=== PATIENT | female | born 1970 ===

== ENCOUNTER 2018-09-21 09:22 | Outpatient (REF) | payer OTHER, SELFPAY ==
[2018-09-21 19:16] LABS: Anion Gap 9.9 mmol/L (3-11); BUN 13 mg/dL (7-18); CO2 25.1 mmol/L (21.0-32.0); CREATININE 0.65 mg/dL (0.55-1.02); Calcium 8.4 mg/dL (8.5-10.1); Calculated LDL 91 mg/dL; Chloride 106 mmol/L (98-107); Cholesterol 149 mg/dL (50-200); Glucose 85 mg/dL (70-100); HDL Cholesterol 53 mg/dL (40-60); Potassium 3.9 mmol/L (3.5-5.1); Sodium 141 mmol/L (136-145); Triglyceride 27 mg/dL (30-150)
[2018-09-21 19:41] LABS: Bacteria Moderate HPF (Negative); C & S Indicated? No/Sq. Contamination; Crystals Negative HPF (Negative); Epithelial Cells Many HPF (Negative); Mucus Negative (Negative); Other Cells Negative (Negative); RBC Negative (0-2); WBC 20-50 HPF (0-5)
== END 2018-09-21 09:42 ==
LOC: NCHCN 09:22
PROVIDERS: PCP Specialist/Technologist Athletic Trainer; Visit Provider Specialist/Technologist Athletic Trainer
DX: Z00.00 Encounter for general adult medical examination without abnormal findings (principal); N39.0 Urinary tract infection, site not specified; Z13.228 Encounter for screening for other metabolic disorders; Z13.220 Encounter for screening for lipoid disorders
CPT/HCPCS: 80048; 80061; 83721; 81015

== ENCOUNTER 2018-12-10 12:17 | Outpatient (REF) | payer OTHER, SELFPAY ==
--- NOTE | 2018-12-10 14:20 | PAPFT_PTH ---
PATIENT: Leia Mcdowell LOC: [facility] U#:[id number] AGE/SX: 48/F ROOM: RE12/10/[address]: Kallie Richards : 1970 BED: DIS: 12/10/2018 SPEC #: [id number] RECD: 12/11/18 12:57 STATUS: JG REMarcin #: [id number] ELIGIO: 12/10/18 14:[address]: Kallie Richards DEPT: [facility] Cytology RECD BY: Kristan Peterson ENTERED: 12/11/18 12:58 SP TYPE: PAPFT OTHR DR: Miles Martinez Tissues: 1 - CX/ENDOCX FOR PAP SMEARS Procedures: PAP THIN PREP/UVM Screening HPV DNA PROBE Comments: [id number]
== END 2018-12-10 12:37 ==
LOC: LBN 12:17
PROVIDERS: PCP Specialist/Technologist Athletic Trainer; Visit Provider Obstetrics & Gynecology Gynecology
DX: Z12.4 Encounter for screening for malignant neoplasm of cervix (principal); Z11.51 Encounter for screening for human papillomavirus (HPV)
CPT/HCPCS: 88142; 87624

== ENCOUNTER 2018-12-10 14:44 | Outpatient (CLI) | payer OTHER, SELFPAY ==
[2018-12-10 17:29] LABS: TSH (W/Ref FT4) 0.69 uIU/mL (0.36-3.74)
== END 2018-12-10 15:04 ==
PROVIDERS: PCP Specialist/Technologist Athletic Trainer; Visit Provider Obstetrics & Gynecology Gynecology
DX: N92.6 Irregular menstruation, unspecified (principal)
CPT/HCPCS: 36415; 84443

== ENCOUNTER 2019-07-11 18:43 | Outpatient (REF) | payer OTHER, SELFPAY | END 2019-07-11 19:03 | LOC: NCHCN 18:43 | PROVIDERS: PCP Specialist/Technologist Athletic Trainer; Visit Provider Family Medicine | DX: R35.0 Frequency of micturition (principal) | CPT/HCPCS: 87086 ==

== ENCOUNTER 2019-09-23 11:27 | Outpatient (REF) | payer OTHER, SELFPAY ==
[2019-09-23 20:03] LABS: Anion Gap 10.5 mmol/L (3-11); BUN 10 mg/dL (7-18); CO2 25.5 mmol/L (21.0-32.0); CREATININE 0.61 mg/dL (0.55-1.02); Calcium 8.8 mg/dL (8.5-10.1); Chloride 105 mmol/L (98-107); Glucose 88 mg/dL (74-106); Sodium 141 mmol/L (136-145)
[2019-09-23 20:14] LABS: Hemoglobin A1C 5.8 % (3.8-5.6)
[2019-09-23 20:32] LABS: Calculated LDL 146 mg/dL (<100); Cholesterol 218 mg/dL (<200); HDL Cholesterol 54 mg/dL (40-60); Triglyceride 93 mg/dL (<150)
== END 2019-09-23 11:47 ==
LOC: NCHCN 11:27
PROVIDERS: PCP Specialist/Technologist Athletic Trainer; Visit Provider Nurse Practitioner Family
DX: I10 Essential (primary) hypertension (principal); Z00.00 Encounter for general adult medical examination without abnormal findings; E78.5 Hyperlipidemia, unspecified
CPT/HCPCS: 80048; 80061; 83036

== ENCOUNTER 2020-03-24 14:55 | Outpatient (REF) | payer OTHER, SELFPAY ==
[2020-03-26 13:06] LABS: COVID-19 RT-PCR UVMMC Result Negative (Negative)
== END 2020-03-24 14:56 | disposition home or self-care (01) ==
LOC: NCHCN 14:55
PROVIDERS: PCP Specialist/Technologist Athletic Trainer; Visit Provider Nurse Practitioner Family
DX: J06.9 Acute upper respiratory infection, unspecified (principal)
CPT/HCPCS: U0003

== ENCOUNTER 2020-10-26 16:42 | Outpatient (REF) | payer OTHER, SELFPAY ==
[2020-10-26 19:54] LABS: Anion Gap 9.3 mmol/L (3-11); BUN 16 mg/dL (7-18); CO2 27.7 mmol/L (21.0-32.0); CREATININE 0.7 mg/dL (0.55-1.02); Calcium 9.1 mg/dL (8.5-10.1); Calculated LDL 172 mg/dL (<100); Chloride 106 mmol/L (98-107); Cholesterol 246 mg/dL (<200); Glucose 91 mg/dL (74-106); HDL Cholesterol 55 mg/dL (40-60); Magnesium 1.9 mg/dL (1.8-2.4); Potassium 4.2 mmol/L (3.5-5.1); Sodium 143 mmol/L (136-145); Triglyceride 96 mg/dL (<150)
[2020-10-26 20:03] LABS: Vitamin D 25 Total 32.4 ng/mL (30-100)
== END 2020-10-26 16:43 | disposition home or self-care (01) ==
LOC: NCHCN 16:42
PROVIDERS: Visit Provider Nurse Practitioner Family
DX: E78.5 Hyperlipidemia, unspecified (principal); R73.03 Prediabetes; Z00.00 Encounter for general adult medical examination without abnormal findings
CPT/HCPCS: 80048; 80061; 82306; 83036; 83735

== ENCOUNTER 2021-04-18 11:52 | Emergency (ER) | payer OTHER, SELFPAY ==
[2021-04-18] VITALS (15 sets, daily range): BP systolic 127–161; BP diastolic 67–96; PULSE 60–95; RESP 11–24; TEMP 37.5; O2SAT 98–100
--- NOTE | 2021-04-18 11:45 | RT.EKG_ITS ---
APPROVED REPORT Exam: Resting ECG Reason for Exam: chest pain Patient Location: E HR:84 bpm ECG Measurements Heart Rate 84 AXIS AK 152 P 53 QRSd 108 QRS 35 QT 382 T 12 QTc 453 Conclusion Sinus rhythm...normal P axis, V-rate 60- 99
--- NOTE | 2021-04-18 12:16 | ED.GENADUL_ITS ---
Discharge Plan Disposition Patient Disposition: HOME Condition: Improving Discharge Details Clinical Impression: Chest wall muscle strain Primary Care Provider: Unknown,Unknown ED Provider: Fede Dunham Home Meds and New Rx's Prescriptions: Continued losartan 50 mg Tablet 50 mg PO DAILY 0RF topiramate [Topamax] 25 mg Tablet 25 mg PO DAILY 0RF Discharge Instructions Instructions: Muscle Strain (ED) Additional Instructions: Your work-up in the emergency department today included chest x-ray, EKG, laboratory analysis with cardiac troponin and a D-dimer. May use ibuprofen and/or Tylenol as needed for discomfort. Apply heat to area to reduce discomfort. Return to the ER if you develop a rash, worsening pain, or any other acute concerns. Medical Decision Making This is a 50-year-old female who was moving heavy boxes at work on , awoke with reproducible central sternal chest pain on Monday that has been persistent throughout. She did note some increased discomfort with movement and with taking a deep breath. She has not had any difficulty breathing or sh ortness of breath. She has not had a rash. She will note a recent URI. Patient arrives to the ER with unremarkable vital signs. She is slightly hypertensive. She has reproducible sternal discomfort on my exam. Differential diagnosis includes muscular strain, must exclude ACS or pulmonary embolism. Patient patient was placed on a surgical dressing maker, screening labs, EKG, chest x-ray obtained. Chest x-ray unremarkable for acute process. EKG without evidence of ischemic changes. Patient's laboratories are reassuring. White blood cell count and CBC are within normal limits. D-dimer is negative. Chemistries unremarkable. Troponin I is negative as well. Patient is improved, she does have a chest pain and an inciting strenuous event for muscle strain. Discussed with her home management. She is stable and appropriate for discharge at [facility] General Mode of arrival: ambulatory . Date/Time Provider Initiated Documentation: 04/18/21 11:52 . Limitations to Documentation: no limitations . Information obtained by: patient . History of Present Illness 50 year old F presents to the emergency department with the chief complaint of Central chest pain since Monday, described as moderate, Quality is described as dull and constant, and is localized to the chest. Patient reports no radiation. Patient started experiencing this day(s) and it has been constant. improves with Rest improves symptom(s), Movement worsens symptoms . Patient notes chest pain; denies cough, fever/chills and shortness of breath. Patient did receive the following treatments prior to arrival, none Related Data Home Medications Medication Instructions Recorded Confirmed losartan 50 mg tablet 50 mg PO DAILY 04/18/21 04/18/21 topiramate 25 mg tablet (Topamax) 25 mg PO DAILY 04/18/21 04/18/21 Allergies Allergy/AdvReac Type Severity Reaction Status Date / Time Latex, Natural Rubber Allergy Unverified 04/18/21 12:02 General Stated Complaint: Chest Pain AMBER: 2 Review of Systems Narrative: No rash. Recently had upper respiratory illness. She has otherwise recently been well. 8 systems reviewed and otherwise negative PFSH All Active Problems (Updated 04/18/21 @ 13:52 by Fede Dunham MD) Chest wall muscle strain (Acute) Social History Smoking/Tobacco Use Status: Former Tobacco Use Smoking risk assessment performed?: Yes Alcohol Intake: never Drug use: Never Substance use type: does not use Do you feel safe at home: Yes Do you feel safe in your relationship?: Yes Exam Narrative Exam Narrative: GEN: awake, alert, oriented 3. Pleasant, well groomed, interactive. HEAD: Normocephalic, atraumatic ENT: Mucous membranes moist,External ear exam unremarkable EYES: PERRL, EOMI NECK: Full ROM, no NELSON, no menigismus CHEST/RESP: Tender overlying the lower sternum. No rash. No crepitus, clear to auscultation bilateral, no wheeze/rhonchi/rales CARDIOVASCULAR: RRR, no murmur, rub shauna. 2+ Rad pulse bilateral ABDOMEN: Soft, nontender, no mass. +Bowel sounds EXT: Full ROM, no edema, no rash Neuro: Grossly normal neurologic exam, conversant, interactive. Psych: Speech fluent, thoughts congruent, affect normal Course Vital Signs Vital signs: Vital Signs Temperature 37.5 C 04/18/21 11:58 Pulse 92 H 04/18/21 11:58 Respiratory Rate 16 04/18/21 11:58 Blood Pressure 161/96 H 04/18/21 11:58 Pulse Oximetry 99 04/18/21 11:58 Temperature 37.5 C 04/18/21 11:58 Temperature Source Temporal Artery Scan 04/18/21 11:58 Pulse 92 H 04/18/21 11:58 Respiratory Rate 16 04/18/21 11:58 Respiratory Effort Non-Labored 04/18/21 12:00 Blood Pressure 161/96 H 04/18/21 11:58 Blood Pressure Position Sitting 04/18/21 11:58 Pulse Oximetry 99 04/18/21 11:58 Oxygen Delivery Method Room Air 04/18/21 11:58 Oxygen Flow Rate 0 04/18/21 11:58 Pain Level 6 04/18/21 11:58
[2021-04-18 12:42] LABS: Abs Immature Grans 0.01 10^3/uL (0.0-0.06); Absolute Basophil Count 0.03 10^3/uL (0.0-0.2); Absolute Eosinophil Count 0.12 10^3/uL (0.0-0.7); Absolute Monocyte Count 0.62 10^3/uL (0.1-0.8); Absolute Neutrophil Count 5.41 10^3/uL (1.2-6.7); Basophils % 0.4; Eosinophils % 1.6; HCT 39.7 % (36.0-46.0); HGB 12.7 g/dL (11.2-15.7); Immature Grans % 0.1; Lymphocytes % 18.4; MCH 28.9 pg (27.0-33.0); MCV 90.4 fL (80-95); MPV 9.7 fL (8.0-11.0); Monocytes % 8.2; Neutrophils % 71.3; Nucleated RBC 0 %; Platelet Count 309 10^3/uL (130-400); RBC 4.39 10^6/uL (3.93-5.22); RDW 12.5 % (11.7-14.6); RDW-SD 41.1 fL; WBC 7.59 10^3/uL (4.4-10.8)
--- NOTE | 2021-04-18 12:55 | DI.RAD_ITS ---
Exam(s) XR CHEST 2V PA LATERAL EXAM: XR CHEST 2V PA LATERAL CLINICAL HISTORY: Central chest pressure. TECHNIQUE: 2D digital imaging was performed. COMPARISON: No exams were available for comparison FINDINGS: 2 views: Heart size is normal. The mediastinum is not widened. Right lung is clear. There is subsegmental platelike atelectasis in the left lung base adjacent to t he heart border. No confluent infiltrates. No pleural effusions. No pneumothorax. IMPRESSION: Subsegmental platelike atelectasis in the left lung base. DATA REPOSITORY: RADIATION DOSE DELIVERED:
--- NOTE | 2021-04-18 12:58 | DI.VRAD_ITS ---
PROCEDURE INFORMATION: Exam: XR Chest Exam date and time: 04/18/2021 12:16 PM Age: 50 years old Clinical indication: Other: Chest pressure TECHNIQUE: Imaging protocol: XR of the chest. Views: 2 views. COMPARISON: No relevant prior studies available. FINDINGS: Lungs: Unremarkable. No consolidation. Pleural spaces: Unremarkable. No pleural effusion. No pneumothorax. Heart/Mediastinum: Unremarkable. No cardiomegaly. Bones/joints: Unremarkable. IMPRESSION: No acute findings. Dictated and Authenticated by: Josh De León MD. Ordering:JAKOB Mistry MD
[2021-04-18 13:00] LABS: ALT 16 U/L (14-59); AST 14 U/L (15-37); Albumin 3.5 g/dL (3.4-5.0); Alkaline Phosphatase 109 U/L (46-116); Anion Gap 11.8 mmol/L (3-11); BUN 10 mg/dL (7-18); Bilirubin, Total 0.4 mg/dL (0.2-1.0); CO2 21.2 mmol/L (21.0-32.0); CREATININE 0.7 mg/dL (0.55-1.02); Calcium 8.5 mg/dL (8.5-10.1); Chloride 109 mmol/L (98-107); Glucose 92 mg/dL (74-106); Magnesium 1.9 mg/dL (1.8-2.4); Potassium 3.5 mmol/L (3.5-5.1); Sodium 142 mmol/L (136-145); Total Protein 7.4 g/dL (6.4-8.2); Troponin I < 50 ng/L (<or=60)
[2021-04-18 13:38] LABS: D-Dimer 420 ng/mlFEU (<500)
== END 2021-04-18 14:20 | disposition home or self-care (01) ==
PROVIDERS: Emergency Provider Emergency Medicine
DX: S29.011A Strain of muscle and tendon of front wall of thorax, initial encounter (principal); X50.0XXA Overexertion from strenuous movement or load, initial encounter; Y99.0 Civilian activity done for income or pay; R07.9 Chest pain, unspecified; R07.89 Other chest pain
CPT/HCPCS: 36415; 80053; 93005; 99284; 71046; 83735; 84484; 85025; 85379; 93010; 99283

== ENCOUNTER 2021-08-25 15:45 | Outpatient (REF) | payer OTHER, SELFPAY ==
--- NOTE | 2021-08-25 15:40 | PAPFT_PTH ---
PATIENT: Leia Mcdowell LOC: [facility] U#:[id number] AGE/SX: 51/F ROOM: RE08/25/[address]: Kallie Richards : 1970 BED: DIS: 08/25/2021 SPEC #: [id number] RECD: 08/25/21 16:59 STATUS: JEWELRadha REQ #: [id number] ELIGIO: 08/25/21 15:[address]: Kallie Richards DEPT: [facility] Cytology RECD BY: Kristan Peterson ENTERED: 08/25/21 17:00 SP TYPE: PAPFT OT DR: Unknown,Unknown Tissues: 1 - CX/ENDOCX FOR PAP SMEARS Procedures: PAP THIN PREP/UVM Screening HPV DNA PROBE Comments: [id number]
== END 2021-08-25 15:46 | disposition home or self-care (01) ==
LOC: LBN 15:45
PROVIDERS: Visit Provider Obstetrics & Gynecology Gynecology
DX: R10.32 Left lower quadrant pain (principal); Z12.4 Encounter for screening for malignant neoplasm of cervix; Z11.51 Encounter for screening for human papillomavirus (HPV)
CPT/HCPCS: 88142; 87086; 87624

== ENCOUNTER 2021-08-25 18:51 | Outpatient (REF) | payer OTHER, SELFPAY | END 2021-08-25 18:52 | disposition home or self-care (01) | LOC: LBN 18:51 | PROVIDERS: Visit Provider Obstetrics & Gynecology Gynecology ==

== ENCOUNTER → 2022-01-26 01:11 | Outpatient (CLI) | payer OTHER, SELFPAY ==
--- NOTE | 2022-01-26 14:00 | DI.MAMMO_ITS ---
Exam(s) MAMMO SCREENING EXAM: MAMMO SCREENING CLINICAL HISTORY: SCREENING, Z12.31. TECHNIQUE: Bilateral full field digital CC and MLO mammographic images were obtained with 3D tomosyn thesis and utilizing computer aided detection (CAD). COMPARISON: None. This is a baseline mammogram on this 51-year-old patient. FINDINGS: Fibroglandular tissue pattern is predominately fatty. There are no CAD designations. There are no spiculated masses nor malignant appearing microcalcification groups. There is no significant architectural distortion nor skin thickening-retraction. IMPRESSION: No radiographic evidence of malignancy. BI-RADS Category 1 - Negative Breast Density - Category A - Almost entirely fatty Breast density Category C or D implies that the patient has dense breast tissue. Dense breast tissue can make it harder to find cancer on a mammogram. Dense breast tissue is also associated with an incr eased risk of breast cancer. This information about the result of the mammogram report was provided to the patient to raise their awareness. Use this report when you speak with the patient about their risks for breast cancer, which includes their family history. At that time, you may recommend additional screening tests (Ultrasoun d or MRI) as these tests may add significant information. A negative radiographic report should not delay biopsy if a dominant or clinically suspicious mass is present. Up to ten percent of cancers are not identified on mammography. A negative report may reinforce clinical impression. Adenosis and dense breasts may obscure an underlying neoplasm. False positive reports average 6 to 10%. Patient will receive a letter notifying them of these results.
== END ==
PROVIDERS: Visit Provider Nurse Practitioner Family
DX: Z12.31 Encounter for screening mammogram for malignant neoplasm of breast (principal)
CPT/HCPCS: 77063; 77067

== ENCOUNTER 2022-08-18 15:12 | Outpatient (REF) | payer OTHER, SELFPAY ==
[2022-08-18 19:33] LABS: Abs Immature Grans 0.03 10^3/uL (0.0-0.06); Absolute Basophil Count 0.06 10^3/uL (0.0-0.2); Absolute Eosinophil Count 0.07 10^3/uL (0.0-0.7); Absolute Lymphocyte Count 1.69 10^3/uL (1.2-3.4); Absolute Monocyte Count 0.61 10^3/uL (0.1-0.8); Absolute Neutrophil Count 6.01 10^3/uL (1.2-6.7); Basophils % 0.7; Eosinophils % 0.8; HCT 44.8 % (36.0-46.0); HGB 14.6 g/dL (11.2-15.7); Immature Grans % 0.4; MCH 29.4 pg (27.0-33.0); MCHC 32.6 % (32.0-36.0); MCV 90 fL (80-95); MPV 10.2 fL (8.0-11.0); Monocytes % 7.2; Neutrophils % 70.9; Platelet Count 366 10^3/uL (130-400); RBC 4.96 10^6/uL (3.93-5.22); RDW 12.1 % (11.7-14.6); RDW-SD 39.9 fL; WBC 8.47 10^3/uL (4.4-10.8)
[2022-08-18 19:45] LABS: Hemoglobin A1C 5.8 % (<5.7)
[2022-08-18 19:47] LABS: ALT 23 U/L (14-59); AST 22 U/L (15-37); Alkaline Phosphatase 143 U/L (46-116); Anion Gap 11.4 mmol/L (3-11); BUN 14 mg/dL (7-18); Bilirubin, Total 0.3 mg/dL (0.2-1.0); CO2 26.6 mmol/L (21.0-32.0); CREATININE 0.8 mg/dL (0.55-1.02); Calcium 9.4 mg/dL (8.5-10.1); Calculated LDL 187 mg/dL (<100); Chloride 104 mmol/L (98-107); Cholesterol 262 mg/dL (<200); Estimated GFR 89.15 (mL/min/1.73m2); Glucose 95 mg/dL (74-106); HDL Cholesterol 66 mg/dL (40-60); Potassium 3.9 mmol/L (3.5-5.1); Sodium 142 mmol/L (136-145); TSH (W/Ref FT4) 0.55 uIU/mL (0.36-3.74); Total Protein 8.3 g/dL (6.4-8.2); Triglyceride 46 mg/dL (<150)
[2022-08-20 13:23] LABS: HIV-1/2 Ag & Ab Screen Negative (Negative)
[2022-08-22 10:23] LABS: Hepatitis C Ab w Rflx HCV PCR Negative (Negative)
== END 2022-08-18 15:13 | disposition home or self-care (01) ==
LOC: NCHCN 15:12
PROVIDERS: Visit Provider Nurse Practitioner Family
DX: Z00.00 Encounter for general adult medical examination without abnormal findings (principal)
CPT/HCPCS: 80053; 80061; 86803; 87389; 83036; 84443; 85025

== ENCOUNTER → 2022-10-24 03:05 | Outpatient (CLI) | payer OTHER, SELFPAY ==
--- NOTE | 2022-10-24 | DI.DEXA_ITS ---
Exam(s) XR DEXA BONE DENSITY W/WO TRENT EXAM: XR DEXA BONE DENSITY W/WO TRENT CLINICAL HISTORY: ELEVATED ALKALINE PHOSPHATASE R74.8 TECHNIQUE: COMPARISON: No exams were available for comparison FINDINGS: Lateral Spine Image: Unremarkable. No compression deformities identified. Left hip: Total T-Score: 0.1 Total Z-Score: 0.6 T- and Z-scores: Within normal limits. Lumbar Spine: Total T-Score: -0.4 Total Z-Score: 0.4 T- and Z-scores: Within normal limits. IMPRESSION: No evidence of osteoporosis.
== END ==
PROVIDERS: Visit Provider Nurse Practitioner Family
DX: Z13.820 Encounter for screening for osteoporosis (principal); R74.8 Abnormal levels of other serum enzymes
CPT/HCPCS: 77080

== ENCOUNTER 2022-12-01 15:59 | Outpatient (REF) | payer OTHER, SELFPAY ==
[2022-12-01 19:28] LABS: Abs Immature Grans 0.03 10^3/uL (0.0-0.06); Absolute Basophil Count 0.04 10^3/uL (0.0-0.2); Absolute Lymphocyte Count 1.44 10^3/uL (1.2-3.4); Absolute Monocyte Count 0.66 10^3/uL (0.1-0.8); Absolute Neutrophil Count 6.18 10^3/uL (1.2-6.7); Basophils % 0.5; Eosinophils % 1.2; HCT 41.3 % (36.0-46.0); HGB 13.1 g/dL (11.2-15.7); Immature Grans % 0.4; MCH 28.5 pg (27.0-33.0); MCHC 31.7 % (32.0-36.0); MCV 90 fL (80-95); MPV 10.5 fL (8.0-11.0); Monocytes % 7.8; Neutrophils % 73.1; Platelet Count 328 10^3/uL (130-400); RBC 4.59 10^6/uL (3.93-5.22); RDW 12.7 % (11.7-14.6); RDW-SD 42.3 fL; WBC 8.45 10^3/uL (4.4-10.8)
[2022-12-01 19:48] LABS: ALT 32 U/L (14-59); AST 24 U/L (15-37); Albumin 3.9 g/dL (3.4-5.0); Alkaline Phosphatase 129 U/L (46-116); Anion Gap 9.9 mmol/L (3-11); BUN 14 mg/dL (7-18); Bilirubin, Total 0.2 mg/dL (0.2-1.0); CO2 24.1 mmol/L (21.0-32.0); CREATININE 0.6 mg/dL (0.55-1.02); Calcium 9.7 mg/dL (8.5-10.1); Calculated LDL 115 mg/dL (<100); Chloride 106 mmol/L (98-107); Cholesterol 194 mg/dL (<200); Estimated GFR 108.61 (mL/min/1.73m2); Glucose 91 mg/dL (74-106); HDL Cholesterol 68 mg/dL (40-60); Sodium 140 mmol/L (136-145); Total Protein 7.8 g/dL (6.4-8.2); Triglyceride 57 mg/dL (<150)
== END 2022-12-01 16:00 | disposition home or self-care (01) ==
LOC: NCHCN 15:59
PROVIDERS: Visit Provider Nurse Practitioner Family
DX: E78.5 Hyperlipidemia, unspecified (principal); R10.9 Unspecified abdominal pain
CPT/HCPCS: 80053; 80061; 85025

== ENCOUNTER → 2023-02-09 02:16 | Outpatient (CLI) | payer OTHER, SELFPAY ==
--- NOTE | 2023-02-09 | DI.MAMMO_ITS ---
Exam(s) MAMMO SCREENING EXAM: MAMMO SCREENING CLINICAL HISTORY: SCREENING FOR BREAST CANCER Z12.31 TECHNIQUE: Bilateral full field digital CC and MLO mammographic images were obtained with 3D tomosyn thesis and utilizing computer aided detection (CAD). COMPARISON: Available for comparison. FINDINGS: Masses/Architectural Distortion: There is a collection of small well-circumscribed nodules in the upp er central left breast on the MLO view. This may represent vessels versus breast nodules. No areas of architectural distortion are seen. Microcalcifications: No suspicious pleomorphic-type are seen. Skin Thickening/Nipple Retraction: None. IMPRESSION: 1. Small collection of nodules in the upper central left breast on the MLO view. 2. A spot compression views requested for further evaluation. Limited left breast ultrasound may be indicated at that time. BI-RADS Category 0 - Assessment Incomplete: Need additional imaging evaluation Breast Density - Category B - Scattered areas of fibroglandular density Breast density category C or D implies that the patient has dense breast tissue. Dense breast tissue is very common and is not abnormal but dense breast tissue can make it harder to find cancer on a ma mmogram. Also, dense breast tissue may increase their breast cancer risk. This information about the result of the mammogram report was provided to the patient to raise their awareness. Use this report when you speak with the patient about their risks for breast cancer, which includes their family hist ory. At that time, you may recommend for more screening tests (Ultrasound or MRI) as they might be us eful based on their risk. A negative radiographic report should not delay biopsy if a dominant or clinically suspicious mass is present. Up to ten percent of cancers are not identified on mammography. A negative report may reinforce clinical impression. Adenosis and dense breasts may obscure an underlying neoplasm. False positive reports average 6 to 10%. Patient will receive a letter notifying them of these results.
== END ==
PROVIDERS: Visit Provider Nurse Practitioner Family
DX: Z12.31 Encounter for screening mammogram for malignant neoplasm of breast (principal); R92.8 Other abnormal and inconclusive findings on diagnostic imaging of breast
CPT/HCPCS: 77063; 77067

== ENCOUNTER → 2023-02-15 02:17 | Outpatient (CLI) | payer OTHER, SELFPAY ==
--- NOTE | 2023-02-15 13:11 | DI.MAMMO_ITS ---
Exam(s) MAMMO SCREEN CALL BACK UNI EXAM: MAMMO SCREEN CALL BACK UNI CLINICAL HISTORY: F/U MAMMO, NODULES UPPER CENTRAL BREAST,R92.8. TECHNIQUE: Craniocaudal and mediolateral oblique Full Field Digital Mammography views of the left br east with Computer Aided Diagnosis. COMPARISON: No exams were available for comparison FINDINGS: Mammography/Tomosynthesis: Masses/Architectural Distortion: The area of concern appears represent tortuous vessels. No suspicio us masses are seen. No areas of architectural distortion are seen. Microcalcifictions: No suspicious pleomorphic-type are seen. Skin Thickening/Nipple Retraction: None. IMPRESSION: 1. No evidence of malignancy is noted. 2. Unless there is more urgent need, follow-up screening mammography is recommended, as per [place] [employer] guidelines. 3. The findings were discussed with the patient on the date of the examination. BI-RADS Category 1 - Negative Breast Density - Category B - Scattered areas of fibroglandular density Breast density Category C or D implies that the patient has dense breast tissue. Dense breast tissue can make it harder to find cancer on a mammogram. Dense breast tissue is also associated with an incr eased risk of breast cancer. This information about the result of the mammogram report was provided to the patient to raise their awareness. Use this report when you speak with the patient about their risks for breast cancer, which includes their family history. At that time, you may recommend additional screening tests (Ultrasoun d or MRI) as these tests may add significant information. A negative radiographic report should not delay biopsy if a dominant or clinically suspicious mass is present. Up to ten percent of cancers are not identified on mammography. A negative report may reinforce clinical impression. Adenosis and dense breasts may obscure an underlying neoplasm. False positive reports average 6 to 10%. Patient will receive a letter notifying them of these results.
== END ==
PROVIDERS: Visit Provider Nurse Practitioner Family
DX: Z12.31 Encounter for screening mammogram for malignant neoplasm of breast (principal); R92.8 Other abnormal and inconclusive findings on diagnostic imaging of breast; N64.59 Other signs and symptoms in breast
CPT/HCPCS: 77063; 77067

== ENCOUNTER 2023-04-17 07:28 | Day surgery (SDC) | payer OTHER, SELFPAY ==
--- NOTE | 2023-04-16 06:44 | PDOC.DSDIS_ITS ---
Date of service: 04/17/23 Time of Service: 09:13 Discharge Plan Disposition Patient Disposition: Home Condition: Good Discharge Details Reason For Visit: screening colonoscopy Attending Provider: David Romeo Primary Care Provider: None,None Home Meds and New Rx's Prescriptions: Continued rosuvastatin 5 mg tablet 5 mg PO DAILY amlodipine 5 mg tablet 5 mg PO HS ibuprofen [Advil Liqui-Gel] 200 MG capsule 200 mg PO PRN aspirin 81 mg tablet,delayed release (DR/EC) 81 mg PO DAILY magnesium oxide 400 mg magnesium tablet 200 mg PO DAILY losartan 50 mg tablet 50 mg PO DAILY Discontinued bisacodyl [Dulcolax (bisacodyl)] 5 mg tablet,delayed release (DR/EC) 5 mg PO ONCE Qty: 4 0RF Rx Instructions: Colonoscopy Bowel Prep- Per Instructions polyethylene glycol 3350 17 gram/dose powder 238 g PO ONCE Qty: 238 0RF Rx Instructions: Colonoscopy Bowel Prep- Per Instructions Discharge Instructions Instructions: Diverticulosis (GEN), Colorectal Polyps (GEN), Diverticulosis D iet (GEN) Additional Instructions: Leia, we were able to complete your colonoscopy today without any difficulty. I did find 1 small polyp that I removed completely. This will be tested, and once the nature of the polyp is returned, then I will be in touch with my recommendations. Incidentally, you also have a little bit of diverticulosis. These are small weak spots in the muscular wall of the colon. General approaches to taking care of involved staying well-hydrated, avoiding constipation, and having plenty of dietary fiber. I have attached a little bit of information here regarding diverticular disease as well as colon and rectal polyps. If you have any questions in the meantime, please do not hesitate to call at any point. 1. If tolerated, consume a soft, low fiber diet for 1-2 days. 2[address] Do not drive, drink alcohol, operate machinery, make critical decisions, or do activities that require coordination or balance for 24 hours. 3. Because air was put into your colon during the procedure, expelling air from your rectum (passing gas or farting) is normal. 4. You may not have a bowel movement for 1-3 days because of the colonoscopy prep. This is normal. 5. Go directly to the emergency room if you notice any of the following: Develop chills (warm to touch), or if you have a thermometer and your temperature is above 101 Difficulty breathing or difficultly swallowing Persistent vomiting Severe abdominal pain, other than gas cramps Severe chest pain Black, tarry stools Any bleeding ? exceeding one tablespoon 6. Call your physician if the site where your intravenous was started becomes red, swollen, painful, and warm to touch. 7. Your physician has reviewed your pre-procedure medications. Please continue to take those medications as previously ordered. You will be given specific information/education regarding any changes to your medications before leaving. Activity:: Activity as Tolerated Diet:: As Tolerated Discharge Orders Discharge Orders: Discharge Order (Routine); Ordered 04/16/23 Ordered By: David Romeo DS: Diagnosis Discharge Diagnosis (1) Encounter for screening colonoscopy: Status: Acute Asessment and Plan: Follow-up on polypectomy results
--- NOTE | 2023-04-16 06:46 | W.COLOREPORT ---
Date of service: 04/17/23 Time of Service: 09:14 Colonoscopy Report Date of procedure: 04/17/23 Pre-op diagnosis general: screening colonoscopy Post-op diagnosis procedure note: other (Diverticulosis, colon polyp) Procedure: colonoscopy with polypectomy Surgeon: David Romeo Anesthesia Type: General:No Airway Estimated blood loss (mL): 5 Pathology: other (0.25 cm pedunculated polyp at 25 cm) Complications: None Disposition: same day Indications: Leia is a 52-year-old woman who needs her for screening colonoscopy Prep: Miralax/Dulcolax Procedure Start Time: 08:52 Procedure End Time: 09:07 Retraction Time: 11 Findings: Scant sigmoid diverticulosis, 0.25 cm pedunculated polyp at 25 cm from the anus Procedure Description: After the induction of monitored anesthetic care, and with the patient in left lateral decubitus position, I began by performing an external anorectal exam.? Perineum and skin were normal, as was the anal verge.? There was no evidence of external hemorrhoids.? Next, I performed a digital rectal exam.? I did not appreciate any abnormal findings.? Next, I advanced a colonoscope into the rectal vault.? I performed retroflexion.? This was normal.? Using insufflation, I then advanced the colonoscope beyond the rectal folds and into the sigmoid colon before advancing towards the cecum.? There was some occasional sigmoid diverticulosis.? The scope was noted to be in the cecum by identification of the ileocecal valve and appendiceal orifice.? I then began withdrawing the colonoscope using repeated irrigation as necessary for full evaluation of the colonic mucosa. ?Around 25 cm from the anal verge was a 0.25 cm pedunculated polyp. This was removed with cold forceps without any difficulty. There was minimal bleeding. Once the scope was withdrawn to the level of the rectum, great care was taken to examine portions of the rectal folds.? Finally, the scope was withdrawn and the patient was brought to the same-day surgery recovery unit as the anesthetic wore off. ?The findings and instructions were shared with the patient prior to discharge. [place] Bowel Prep [place] Bowel Prep Right Colon: 3 Left Colon: 3 Transverse Colon: 3 Total Score: 9
[2023-04-17 07:50] VITALS: BP 146/89; PULSE 115; RESP 18; TEMP 36.4; O2SAT 96
[2023-04-17] MEDS: Lactated Ringers 1,000 ML 80 ML IV (07:53)
--- NOTE | 2023-04-17 08:35 | ANES.PREOP_ITS ---
General Info Date of Service Date Performed: 04/17/23 Height: 5 ft 4 in Weight: 108.2 kg Body Mass Index (BMI): 40.9 Surgical Procedure: Operation Date: 04/17/23 09:05 Proposed Procedure Side Surgeon p Carlotta Romeo MD Meds Allergies and Home Medications Allergies Allergy/AdvReac Type Severity Reaction Status Date / Time Latex, Natural Rubber Allergy Skin Rash Verified 04/17/23 07:34 Home Medication Medication Instructions Recorded ibuprofen 200 mg capsule (Advil 200 mg PO PRN 05/23/16 Liqui-Gel) losartan 50 mg tablet 50 mg PO DAILY 08/25/21 amlodipine 5 mg tablet 5 mg PO HS 12/13/22 rosuvastatin 5 mg tablet 5 mg PO DAILY 12/13/22 aspirin 81 mg tablet,delayed 81 mg PO DAILY 03/01/23 release magnesium oxide 200 mg PO DAILY 03/23/23 Current Visit Medications: Current Medications Generic Name Dose Route Start Last Admin Trade Name Freq PRN Reason Stop Dose Admin Hyoscyamine Sulfate 0.125 mg 04/16/23 06:47 Hyoscyamine 0.125 Mg Sl/Oral/Chew SL 05/16/23 06:46 DIRECTED PRN Ringer's Solution 1,000 mls @ 80 mls/hr 04/17/23 06:00 04/17/23 07:53 IV 04/17/23 23:59 80 mls/hr INFUSION SONDRA Administration IV Miscellaneous Supplies 1 each 04/17/23 06:00 Iv Access IV 04/17/23 23:59 DIRECTED SONDRA Ondansetron HCl 4 mg 04/16/23 06:47 Ondansetron 4 Mg/2 Ml Vial IVP 05/16/23 06:46 Q4H PRN PRN Nausea / Vomiting Sodium Chloride 0 ml 04/17/23 06:00 Normal Saline Flush 10 Ml Syr IV 04/17/23 23:59 PRN PRN Sodium Chloride 0 ml 04/17/23 06:00 Normal Saline 10 Ml Vial IJ 04/17/23 23:59 DIRECTED PRN Sterile Water 0 ml 04/17/23 06:00 Water,Injection,Sterile 10 Ml Vial IJ 04/17/23 23:59 DIRECTED PRN PFSH Active Problems Active Problems: Problem Status Onset Code Encounter for screening colonoscopy Z12.11 Nevus D22.9 Sensorineural hearing loss H90.5 Restless leg G25.81 Hypertension I10 Condyloma acuminatum in female A63.0 Left lower quadrant pain R10.32 Vaginal bleeding N93.9 History of hysterectomy, supracervical 05/23/16 Z90.711 Migraine with aura 08/27/12 G43.109 Medical History Medical History urinary incontinence Hyperlipidemia Depression Surgical History Surgical History Sling Procedure (~2008) Done at [facility] by Dr Bermudez - ? type of procedure Diagnostic Laproscopy (~2000) Dr Scott - done for pelvic pain Cholecystectomy (~1998) Appendectomy (~1996) Tobacco Smoking/Tobacco Use Status: Former Tobacco Use Second hand exposure: Yes Alcohol Alcohol Intake: current Alcohol intake frequency: holidays/special occasions only Substance Use Substance use: Never Substance use type: does not use Prental History History 4 Para Hx # Term Pregnancies 2 Multiple births Hx # Pregnancies Ectopic pregnancies AB induced Hx Number of Living Children AB spontaneous Vital Signs and Lab Results Vital Signs Most Recent Vital Signs in EMR: Most Recent Vital Signs Temp Pulse Resp BP Pulse Ox 36.4 C L 115 H 18 146/89 H 96 04/17/23 07:50 04/17/23 07:50 04/17/23 07:50 04/17/23 07:50 04/17/23 07:50 Lab Results Blood Type / Crossmatch: No Data to Display Complete Blood Count: No Data to Display Complete Metabolic Panel: No Data to Display Liver Function Panel: No Data to Display Coagulation Panel: No Data to Display Cardiac Panel: No Data to Display Arterial Blood Gas: No Data to Display Venous Blood Gas: No Data to Display Pancreas Panel: No Data to Display Thyroid Panel: No Data to Display Infectious Disease: No Data to Display Blood Cultures: No Data to Display Toxicology Panel: No Data to Display Panel: No Data to Display Anesthesia Assessment and Plan Anesthesia History Personal History: No History of Anesthesia Complications Family History: No Family History of Anesthesia Complications Exercise Tolerance Exercise Tolerance: Metabolic Equivalents>4 Pertinent Negatives Pertinent Negatives: No Symptoms of GERD, No Major Cardiovascular Symptoms or Complaints and No Major Pulmonary Symptoms or Complaints Cardiac & Pulmonary Exam Cardiac Exam: Normal S1/S2 Heart Sounds Pulmonary Exam: Clear Bilateral Breath Sounds Implantable Cardiac Device Does patient have a Pacemaker or an ICD?: No Airway Exam Known Difficult Airway: No Mallampati Class: 3 Mouth Opening: Normal (> 3cm) Thyromental Distance: Less than 3 cm Neck Range of Motion: Full ROM Neck Circumference: Normal Teeth Condition: Normal Dentition ASA Classification ASA Score: ASA 3 Emergency Case?: No NPO Status NPO Status: NPO Clears >2 hours, Solids >8 hours Status Status: History of Hysterectomy Anesthesia Plan Resuscitation Status: Full Code Anesthesia Technique: General Anesthesia Airway Planned: Natural Airway Monitors Used: Standard Monitors
[2023-04-17 08:36] VITALS: BMI 40.9
--- NOTE | 2023-04-17 09:04 | BOWEL_PTH ---
PATIENT: Leia Mcdowell LOC: [facility] U#:[id number] AGE/SX: 52/F ROOM: RE04/17/[address]: David Romeo MD : 1970 BED: DIS: 04/17/2023 SPEC #: [id number] RECD: 04/17/23 12:33 STATUS: JG REQ #: [id number] ELIGIO: 04/17/23 09:[address]: David Romeo DEPT: Surgical Specimen RECD BY: Kristan Peterson ENTERED: 04/17/23 12:34 SP TYPE: Bowel OTHR DR: None Tissues: 1 - BIOPSY BOWEL Procedures: GROSS AND MICRO LEVEL 4 IMMUNOPEROXIDASE STAIN Comments: [id number]
[2023-04-17 09:15] VITALS: BP 132/75; PULSE 96; RESP 16; TEMP 36.8; O2SAT 96
[2023-04-17 09:30] VITALS: BP 149/80; PULSE 95; RESP 16; TEMP 36.8; O2SAT 96
--- NOTE | 2023-04-17 10:03 | W.ANESPOSTOP ---
Postoperative Evaluation Date, Time and Location Date Performed: 04/17/23 Time Performed: 10:03 Patient Location: Day Surgery Unit Vital Signs Most Recent Imported Vital Signs: Most Recent Vital Signs Temp Pulse Resp BP Pulse Ox 36.8 C 95 H 16 149/80 H 96 04/17/23 09:30 04/17/23 09:30 04/17/23 09:30 04/17/23 09:30 04/17/23 09:30 Pain Score Most Recent Pain Score: Most Recent Pain Score Pain Level 0 04/17/23 09:30 Assessment Mental Status: Awake (Alert & Oriented to Patient Baseline) Airway and Respiratory Function: Patent airway with normal (patient baseline) respiratory exam Cardiovascular Function: Hemodynamically Stable Hydration Status: Adequately Hydrated Nausea & Vomiting: No Nausea or Vomiting Pain: Pt. Denies Any Pain Peripheral Nerve Block: Patient did not receive a nerve block
== END 2023-04-17 09:52 | disposition home or self-care (01) ==
PROVIDERS: Visit Provider Surgery
PROC: 0DJD8ZZ Inspection of Lower Intestinal Tract, Via Natural or Artificial Opening Endoscopic (ICD-10-PCS; CPT 45378; principal; 2023-04-17 09:00)
DX: Z12.11 Encounter for screening for malignant neoplasm of colon (principal); K63.5 Polyp of colon; K57.30 Diverticulosis of large intestine without perforation or abscess without bleeding; I10 Essential (primary) hypertension; K63.89 Other specified diseases of intestine
CPT/HCPCS: 45380; 88305; 88361; J2704

== ENCOUNTER 2023-10-27 10:04 | Emergency (ER) | payer OTHER, SELFPAY ==
[2023-10-27 10:14] VITALS: BP 149/96; PULSE 88; RESP 18; TEMP 36.6; O2SAT 98
--- NOTE | 2023-10-27 10:15 | DI.RAD_ITS ---
Exam(s) XR ANKLE LT COMPLETE EXAM: XR ANKLE LT COMPLETE CLINICAL HISTORY: L ankle injury TECHNIQUE: 2D digital imaging was performed. Three views. COMPARISON: No exams were available for comparison FINDINGS: BONES: Nondisplaced fracture at the tip of the lateral malleolus. The medial malleolus appears intac t.. No bony destructive lesion is seen. Tiny heel spurs. JOINTS:The ankle mortise is normally aligned. SOFT TISSUE: Swelling around the malleoli. IMPRESSION: Nondisplaced fracture at the tip of the lateral malleolus. DATA REPOSITORY: RADIATION DOSE DELIVERED:
--- NOTE | 2023-10-27 10:51 | W.ED.GENAD ---
Discharge Plan Disposition Patient Disposition: Home Condition: Stable Discharge Details Clinical Impression: Fracture of distal end of left fibula, Contusion of right knee Primary Care Provider: Unknown,Unknown ED Provider: Rodriguez Handy Home Meds and New Rx's Prescriptions: Continued rosuvastatin 5 mg tablet 5 mg PO DAILY amlodipine 5 mg tablet 5 mg PO HS ibuprofen [Advil Liqui-Gel] 200 MG capsule 200 mg PO PRN aspirin 81 mg tablet,delayed release (DR/EC) 81 mg PO DAILY magnesium oxide 400 mg magnesium tablet 200 mg PO DAILY losartan 50 mg tablet 50 mg PO DAILY Discharge Instructions Instructions: Minor Contusion ED, Lower Leg Fracture ED Additional Instructions: You were seen in the emergency department for your minor nondisplaced fracture at the distal end of your left fibula, please remain in the walking boot until you receive further instructions from follow-up appointments, you may weight-bear as tolerated with the crutches may help you with prolonged periods of needing to walk or weightbearing. Please rest, ice, compress and elevate the ankle often, you may remove the walking boot to ice the ankle at home as long as it stays immobile. Please use therapeutic dosing of Tylenol (acetamenophen) & Advil (ibuprofen) in an alternating fashion as follows: Take 1000mg of Tylenol every 6 hours without missing doses- that is 4 times per day. Starks in between the Tylenol dosings, take 400-600mg of Advil also on a 6 hour schedule, that is also 4 times per day. The daily maximum dosing of Tylenol is 4000mg, and the daily maximum dosing of Advil is 2400mg. This is safe to do for weeks. Please note that some common cold medications & prescription pain medications may contain acetamenophen and you need to read OTC drug labels and factor that in to maximum daily dosings. Please follow-up with your primary care provider or orthopedics for routine x-rays to ensure routine healing of your left distal fibula fracture. Referrals: [facility] [Provider Group] Discharge Data Discharge Date/Time-TO BE ENTERED AT DEPARTURE: 10/27/23 11:22 HPI General Date/Time Provider Initiated Documentation: 10/27/23 10:16. HPI Narrative: 53 year-old female presents to ED today by POV/ambulating with a chief complaint of L ankle pain, R-side dominant, with onset just prior to arrival while working. Quality described as mild lateral L ankle pain, less so R knee pain, no radiation to numbness, tingling, large swelling, bruising, proximal fibular head pain. Severity is described as mild to moderate. Palliating factors include nothing specific. Provoking factors include walking. Patient not anticoagulated. Related Data Home Medications ?Medication ?Instructions ?Recorded ?Confirmed ibuprofen 200 mg capsule (Advil 200 mg PO PRN 05/23/16 04/17/23 Liqui-Gel) losartan 50 mg tablet 50 mg PO DAILY 08/25/21 04/17/23 amlodipine 5 mg tablet 5 mg PO HS 12/13/22 04/17/23 rosuvastatin 5 mg tablet 5 mg PO DAILY 12/13/22 04/17/23 aspirin 81 mg tablet,delayed 81 mg PO DAILY 03/01/23 04/17/23 release magnesium oxide 200 mg PO DAILY 03/23/23 04/17/23 Allergies Allergy/AdvReac Type Severity Reaction Status Date / Time Latex, Natural Rubber Allergy Skin Rash Verified 04/17/23 07:34 General Stated Complaint: Orthopedic AMBER: 4 Review of Systems All systems reviewed & are unremarkable except as noted in HPI and below Exam Narrative Exam Narrative: GENERAL APPEARANCE: Well-nourished, non-toxic, awake and alert, atraumatic, no acute distress. SKIN: Warm, pink, dry, intact, without rashes/lesions/ulcerations. HEAD: Normocephalic, atraumatic, normal hair distribution for gender/age. EYES: Normal conjunctiva, no exudates on lids/lashes. ENT: Nares patent, no circumoral cyanosis, no facial swelling NECK: Supple, trachea midline, painless cervical ROM. LUNGS/CHEST: Non-labored respirations, normal A/P diameter, symmetrical expansion, no chest wall deformity HEART (CV/PV): No peripheral edema, no JVD. ABDOMEN: Soft, non-distended, no guarding. MSK: Normal ROM, no swelling/deformity to bilateral UEs or LEs, moving all extremities without weakness, no cyanosis, spine midline without tenderness, normal curvature. L LE: Mild tenderness with some mild ecchymotic skin changes around the lateral malleolus of the left ankle, dorsalis pedis pulse 2+, able to dorsi plantarflex, able to bear weight with minimal pain, no fibular head tenderness R LE: Mild abrasion without active bleeding she is below the right knee without joint line tenderness or ligamentous laxity NEURO: Mental Status AAOx4 - alert to person, place, time, events No facial droop, no forehead involvement. Motor: No focal weakness - strength 5/5 in bilateral UEs and LEs, proximal and distal, symmetric. Sensory: sensation intact to light touch globally. Gait antalgic. PSYCH: euthymic, cooperative, pleasant, appropriate speech Course Vital Signs Vital signs: Vital Signs Temperature 36.6 C 10/27/23 10:14 Pulse 88 10/27/23 10:14 Respiratory Rate 18 10/27/23 10:14 Blood Pressure 149/96 H 10/27/23 10:14 Pulse Oximetry 98 10/27/23 10:14 Temperature 36.6 C 10/27/23 10:14 Temperature Source Temporal Artery Scan 10/27/23 10:14 Pulse 88 10/27/23 10:14 Respiratory Rate 18 10/27/23 10:14 Blood Pressure 149/96 H 10/27/23 10:14 Blood Pressure Position Sitting 10/27/23 10:14 Pulse Oximetry 98 10/27/23 10:14 Oxygen Delivery Method Room Air 10/27/23 10:14 Oxygen Flow Rate 0 10/27/23 10:14 Medical Decision Making This dictation utilizes [id number] dictation software and may contain unedited grammatical errors. 53 year-old female presents to ED today by POV/ambulating with a chief complaint of L ankle pain, R-side dominant, with onset just prior to arrival while working. Quality described as mild lateral L ankle pain, less so R knee pain, no radiation to numbness, tingling, large swelling, bruising, proximal fibular head pain. Severity is described as mild to moderate. Palliating factors include nothing specific. Provoking factors include walking. Patients' medical history: Noncontributory. Family and social history: Noncontributory. Pertinent exam findings / vital signs include left ankle tenderness without gross deformity or swelling, able to bear weight, neurovascularly intact distal, minor abrasion to right superior galvan. Differential / pathologies of concern include fracture, sprain/strain. Diagnostic studies of: -XR L Ankle - shows nondisplaced distal fib fracture. Interventions of: -walking boot, crutches PRN. ED Course/Assessment/Plan: 53-year-old female suffered a fall at work stepping into a hole, has a distal fibula nondisplaced fracture that needs treatment in a walking boot with routine x-rays of his follow-up, I provided crutches as needed but she is able to partially weight-bear, I recommend RICE therapy and therapeutic dosing of Tylenol and ibuprofen, strict return criteria for any signs of neurovascular compromise. Findings not consistent with displaced fracture neurovascular compromise. Disposition of fracture of distal end of left fibula, contusion of right knee. Patient verbalized understanding of the plan and return to ED criteria and engaged in shared decision making. Medical Records Medical records reviewed: Yes I reviewed the patient's medical records. Imaging Data Radiologic Study: Attestation: I personally reviewed and interpreted this imaging study as follows: Imaging: X-Ray Radiologist's impression: EXAM: XR ANKLE LT COMPLETE CLINICAL HISTORY: L ankle injury TECHNIQUE: 2D digital imaging was performed. Three views. COMPARISON: No exams were available for comparison FINDINGS: BONES: Nondisplaced fracture at the tip of the lateral malleolus. The medial malleolus appears intact.. No bony destructive lesion is seen. Tiny heel spurs. JOINTS:The ankle mortise is normally aligned. SOFT TISSUE: Swelling around the malleoli. IMPRESSION: Nondisplaced fracture at the tip of the lateral malleolus. Quality:SDOH Health Related Social Needs: No Data to Display PFSH All Active Problems (Updated 10/27/23 @ 11:12 by CLAIRE Christine) Contusion of right knee (Acute) Fracture of distal end of left fibula (Acute) Encounter for screening colonoscopy (Acute) Nevus (Acute) Sensorineural hearing loss (Acute) Restless leg (Acute) Hypertension (Chronic) Condyloma acuminatum in female (Chronic) vulvar Left lower quadrant pain (Acute) 08/2021. Episodic, debilitating.10/2021. Nl pelvic u/s. Pt will speak to PCP regarding GI eval. Vaginal bleeding (Acute) Monthly spotting consistent with menses from cervix after supracervical hysterectomy 2016 History of hysterectomy, supracervical (Acute 05/23/16) LSH w/ bilat salpingectomy; benign pathology Migraine with aura (Acute 08/27/12) Medical History (Updated 10/27/23 @ 11:12 by CLAIRE Christine) urinary incontinence Hyperlipidemia Depression Surgical History (Updated 04/18/23 @ 09:36 by Katherine Lan) History of colonoscopy (~04/2023) Sling Procedure (~2008) Done at [facility] by Dr Bermudez - ? type of procedure Diagnostic Laproscopy (~2000) Dr Scott - done for pelvic pain Cholecystectomy (~1998) Appendectomy (~1996) Social History (Updated 03/23/23 @ 15:38 by CLAIRE Valero) Smoking/Tobacco Use Status: Former Tobacco Use Quit Date: 02/06/97 Second Hand Exposure: Yes Smoking risk assessment performed?: Yes Alcohol Intake: current Alcohol Intake frequency: holidays/special occasions only Drug use: Never Substance use type: does not use Household members: significant other, children and other Details: Sons: Ben. Senior Avendaño. Plans on studying [employer]. [facility]. 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 What is your relationship status?: living with partner Panel score (0-1 are the most socially isolated patients): 1 Seatbelt use: always Do you feel safe at home: Yes Do you feel safe in your relationship?: Yes Female Reproductive History Menstrual Duration of menses: other History History 4 Para Hx # Term Pregnancies 2 Multiple births Hx # Pregnancies Ectopic pregnancies AB induced Hx Number of Living Children AB spontaneous
[2023-10-27 11:10] VITALS: BP 149/58; PULSE 97; RESP 16; O2SAT 98
--- NOTE | 2023-10-28 07:23 | NUR.NOTE ---
Accessed Pt chart to obtain the diagnosis and provider for the [facility] paperwork
--- NOTE | 2023-10-31 14:58 | NUR.NOTE ---
Addendum entered by Josefina Grijalva 10/31/23 15:11: CLAIRE Cantu did make out a work note. Patient asked to have it emailed to her @ [email or web address]. Work note sent to medical records for scanning into patient chart. Original Note: Access chart to determine who saw the patient for a possible work note. Nursing Note:
== END 2023-10-27 11:22 | disposition home or self-care (01) ==
PROVIDERS: Emergency Provider Physician Assistant
DX: S82.65XA Nondisplaced fracture of lateral malleolus of left fibula, initial encounter for closed fracture (principal); W01.0XXA Fall on same level from slipping, tripping and stumbling without subsequent striking against object, initial encounter; S80.01XA Contusion of right knee, initial encounter
CPT/HCPCS: 29515; 99283; 73610

== ENCOUNTER 2023-11-27 20:46 | Outpatient (REF) | payer OTHER, SELFPAY ==
--- OUTSIDE RECORDS SUMMARY | 2023-11-27 20:47 | XMS_ITS | Referral Summary ---
Author Organization [facility] Address [address] [place] [address] Care Team Providers Care Irrigation Tax Assessor Collector Name Role Phone Unknown, Provider Primary Care Provider Social History Tobacco Use Types Packs/Day Years Used Date Smoking Tobacco: Never Assessed Sex and Gender Information Value Date Recorded Sex Assigned at Not on file Gender Identity Not on file Sexual Orientation Not on file Plan of Treatment Not on file JeremiasJingLeia Personal/Family Self 1970 [employer] (Home) [address] [place] [address] JeremiasJingLeia Personal/Family Self 1970 [employer] (Home) [address] [place] [address] Jeremias Leia Personal/Family Self 1970 [employer] (Home) [address] [place] [address] Jeremias, Leia Personal/Family Self 1970 [address] [place] [address] Jeremias Leia Personal/Family Self 1970 [address] [address] [place] [address] Jeremias Leia Personal/Family Self 1970 [address] (Home[address] [address] Leia Mcdowell Personal/Family Self 1970 [address]Home) [address] [place] [address] Care Teams Irrigation Tax Assessor Collector Relationship Specialty Start Date End Date Unknown, Provider, PCP - General 04/07/23
--- OUTSIDE RECORDS SUMMARY | 2023-11-27 20:47 | XMS_ITS | Encounter Summary ---
Author Organization [facility] Address [address] [place] [address] Care Team Providers Care Commercial Roofer Name Role Phone Unknown, Provider Primary Care Provider Encounter Details Date Type Department Care Team (Late st Contact Info) Description 04/17/2023 Lab Requisition [facility] Pathology & Laboratory Medicine - [facility] [address] [place], [place] [id number] David Romeo MD [address] [place] [address], [address] [place] [address] Encounter for screening for malignant neoplasm of colon Social History Tobacco Use Types Packs/Day Years Used Date Smoking Tobacco: Never Assessed Sex and Gender Information Value Date Recorded Sex Assigned at Not on file Gender Identity Not on file Sexual Orientation Not on file documented as of this encounter Plan of Treatment Not on file documented as of this encounter Procedures Procedure Name Priority Date/Time Associated Diagnosis Comments SURGICAL PATHOLOGY Today 04/17/2023 9:04 EDT Encounter for screening for malignant neoplasm of colon documented in this encounter Results * SURGICAL PATHOLOGY (04/17/2023 9:04 EDT) Note to Patient The following pathology results have been interpreted by your pathologist and may be available to you before your health provider has had the opportunity to review them. Please allow time for your provider to receive these results and explore management options, if applicable. 04/21/2023 11:48 EDT [facility] Final Diagnosis A. COLON, 25 CMS, POLYP, BIOPSY: - Mullerian-type glands in endometrial-type stroma; favor endometriosis. - Adjacent/overlying colonic mucosa with no significant diagnostic abnormalities. - No definite diagnostic evidence of malignancy. - Deeper sections x3 examined. - See comment. 04/21/2023 11:48 [facility] Diagnosis Comment The histological and immunohistochemical features would favor endometriosis. The Mulllerian-type glands are not confluent and the epithelial lining cells do not show significant atypia to support a diagnosis of adenocarcinoma. Clinical follow-up and re-biopsy may be helpful if a malignancy is suspected clinically. Immunoperoxidase stains were performed on this case to further characterize the lesion. ANTIBODY(CLONE)(BLOCK ):RESULT PAX-8 (MRQ-50, [place]) (A1): Positive in Mullerian-type glands SATB2 (EP281, [employer]) (A1): Negative in Mullerian-type glands CD10 (56C6, Leica) (A1): Positive in endometrial-type stroma NOTE: One or more of the reagents used in immunoperoxidase testing in this case may not have been cleared or approved by the U.S. Food and Drug Administration (FDA). The FDA has determined that such clearance or approval is not necessary. These tests are used for clinical purposes. They should not be regarded as investigational or for research. These reagents' performance characteristics have been determined by [facility] and/or by the referring laboratory. The positive and negative controls worked appropriately. If immunoperoxidase staining has been performed on alcohol fixed cytology specimens, which has not been fully validated, the assays should be interpreted with caution and correlated with clinical data. This laboratory is certified under the Clinical Laboratory Improvement Amendments of 1988 (CLIA-88) as qualified to perform high complexity clinical laboratory testing. Preliminary results were discussed with Dr. Lorna Romeo on 04/19/2023 at 11:30 am EDT. This case was reviewed with Dr. Karthik Keller in Gynecological pathology and the above diagnosis reflects her opinion. 04/21/2023 11:48 [facility] Attestation By the signature below, the attending physician certifies that they have 1) personally conducted a gross and/or microscopic examination of the described specimen(s), and/or personally interpreted the results of laboratory testing of the described specimen(s), and 2) personally rendered or confirmed the above diagnosis. 04/21/2023 11:48 [facility] at 1148 Clinical History Colorectal screening 04/21/2023 11:48 EDT [facility] Gross Description A. Received in formalin labelled with proper patient identification (initials S, V) and colon polyp 25 cm are 4 vu tissue fragments (0.2 x 0.1 x 0.1 cm to 0.5 x 0.3 x 0.1 cm). Entirely submitted in A1. Margareth Moser 04/18/2023 7:46 04/21/2023 11:48 EDT [facility] Performing Lab [facility] 04/21/2023 11:48 EDT [facility] Scanned Images 04/21/2023 11:48 EDT [facility] Tissue COLON STRUCTURE / Unknown 04/17/2023 9:04 EDT 04/17/2023 18:30 EDT David Romeo MD PATHOLOGY ORDERABLES [facility] [address] [place] [address] documented in this encounter Visit Diagnoses Diagnosis Encounter for screening for malignant neoplasm of colon Special screening for malignant neoplasms, colon documented in this encounter Care Teams Commercial Roofer Relationship Specialty Start Date End Date Unknown, Provider, PCP - General 04/07/23 documented as of this encounter
--- OUTSIDE RECORDS SUMMARY | 2023-11-27 20:47 | XMS_ITS | Encounter Summary ---
Author Organization [facility] Address [address] [place] [address] Care Team Providers Care Inventory Control Supervisor Name Role Phone Unknown, Provider Primary Care Provider Encounter Details Date Type Department Care Team (Late st Contact Info) Description 08/30/2021 Lab Requisition [facility] Pathology & Laboratory Medicine - [facility] [address] [place] [address] Kallie Sandoval MD [address] [place] [address] [address] [place] [address] Encounter for other general examination Social History Tobacco Use Types Packs/Day Years Used Date Smoking Tobacco: Never Assessed Sex and Gender Information Value Date Recorded Sex Assigned at Not on file Gender Identity Not on file Sexual Orientation Not on file documented as of this encounter Plan of Treatment Not on file documented as of this encounter Procedures Procedure Name Priority Date/Time Associated Diagnosis Comments PAP TEST Today 08/25/2021 15:40 EDT Encounter for other general examination HPV DNA DETECTION WITH GENOTYPING, PCR Today 08/25/2021 15:40 EDT Encounter for other general examination documented in this encounter Results * HUMAN PAPILLOMAVIRUS (HPV) DETECTION-HIGH RISK TYPES (08/25/2021 15:40 EDT) HPV other High Risk types, PCR Negative Negative 09/02/2021 15:16 EDT [facility] Comment:No E6 or E7 mRNA is detected from HPV types 16,18,31,33,35,39,45,51,52,56,58,59,66, and 68 by loading unit operator mediated amplification. Papanicolaou smear specimen (specimen) CERVIX UTERI STRUCTURE / Unknown 08/25/2021 15:40 EDT 09/01/2021 14:06 EDT Kallie Sandoval MD MICROBIOLOGY - GENER AL ORDERABLES Performing Organization Address City/[facility]/ZIP Co de Phone Number [facility] [address] [place] [address] * PAP TEST (08/25/2021 15:40 EDT) Specimens A. Cervix and/or Endocervix , ThinPrep Imaging System with Manual Evaluation 09/02/2021 15:16 EDT [facility] Specimen Adequacy Satisfactory for Evaluation - transformation zone component present 09/02/2021 15:16 T [facility] General Categorization Negative for intraepithelial lesion or malignancy 09/02/2021 15:16 T [facility] Attestation . 09/02/2021 15:16 T [facility] at 1516 Clinical History See below 09/03/19 15:16 EDT [facility] HPV The result for the Human Papillomavirus (HPV) Detection-High Risk Types is Negative. No E6 or E7 mRNA is detected from HPV types 16,18,31,33,35,39 ,45,51,52,56,58,5 9,66, and 68 by loading unit operator mediated amplification.Olive ting was performed on specimen [id number] and was resulted on 09/02/2021 1510 EDT by FELIX, LAB INSTRUMENT RESULTS IN 09/02/2021 15:16 EDT [facility] Performing Lab [facility] 09/02/2021 15:16 EDT [facility] Scanned Images 09/02/2021 15:16 EDT [facility] Papanicolaou smear specimen (specimen) CERVIX UTERI STRUCTURE / Unknown 08/25/2021 15:40 EDT 08/30/2021 10:00 EDT Kallie Sandoval MD PATHOLOGY ORDERABLES Performing Organization Address City/[facility]/ZIP Co de Phone Number [facility] [address] [place] [address] documented in this encounter Visit Diagnoses Diagnosis Encounter for other general examination documented in this encounter Care Teams Inventory Control Supervisor Relationship Specialty Start Date End Date Unknown, Provider, PCP - General 04/07/23 documented as of this encounter
--- OUTSIDE RECORDS SUMMARY | 2023-11-27 20:47 | XMS_ITS | Encounter Summary ---
Author Organization [facility] Address [address] [place] [address] Care Team Providers Care Packing Machine Operator Name Role Phone Unknown, Provider Primary Care Provider Encounter Details Date Type Department Care Team (Late st Contact Info) Description 04/17/2023 Lab Requisition [facility] Pathology & Laboratory Medicine - [facility] [address] [place] [address] Social History Tobacco Use Types Packs/Day Years Used Date Smoking Tobacco: Never Assessed Sex and Gender Information Value Date Recorded Sex Assigned at Not on file Gender Identity Not on file Sexual Orientation Not on file documented as of this encounter Plan of Treatment Not on file documented as of this encounter Visit Diagnoses Not on filedocumented in this encounter Care Teams Packing Machine Operator Relationship Specialty Start Date End Date Unknown, Provider, PCP - General 04/07/23 documented as of this encounter
--- OUTSIDE RECORDS SUMMARY | 2023-11-27 20:47 | XMS_ITS | Clinical Summary ---
Author Organization [facility] Address [address] [place] [address] Care Team Providers Care Track Coach Name Role Phone Unknown, Provider Primary Care Provider Social History Tobacco Use Types Packs/Day Years Used Date Smoking Tobacco: Never Assessed Sex and Gender Information Value Date Recorded Sex Assigned at Not on file Gender Identity Not on file Sexual Orientation Not on file Plan of Treatment Health Maintenance Due Date Last Done Comments Hepatitis C Screen 1970 Hepatitis B Vaccine (1 of 3 - 19+ 3-dose series) 07/06 COVID-19 Vaccine ( season) 2022 Jing Mcdowellerie Personal/Family Self 1970 [address] (Home) [address] [facility] [facility] [place] [address] Leia Mcdowell Personal/Family Self 1970 [address] [place] [place] [address] Jing Mcdowellerie Personal/Family Self 1970 [address] [place] [facility] [address] [facility] [place] [address] Leia Mcdowell Personal/Family Self 1970 [address] ([address] [place] [address] JeremiasJingLeia Personal/Family Self 1970 [address] ([address] [place] [address] Leia Mcdowell Personal/Family Self 1970 [address] [address] [place] [address] Leia Mcdowell Personal/Family Self 1970 [address] (Home) [address] [place] [address] Care Teams Track Coach Relationship Specialty Start Date End Date Unknown, Provider, PCP - General 04/07/23
[2023-11-27 21:48] LABS: BUN 16 mg/dL (7-18); CREATININE 0.7 mg/dL (0.55-1.02); Calcium 9.6 mg/dL (8.5-10.1); Chloride 106 mmol/L (98-107); Glucose 92 mg/dL (74-106); Potassium 4.2 mmol/L (3.5-5.1); Sodium 142 mmol/L (136-145)
== END 2023-11-27 20:47 | disposition home or self-care (01) ==
LOC: NCHCN 20:46
PROVIDERS: Visit Provider Nurse Practitioner Family
DX: I10 Essential (primary) hypertension (principal)
CPT/HCPCS: 80048

== ENCOUNTER 2024-02-06 15:19 | Outpatient (CLI) | payer OTHER, SELFPAY ==
--- NOTE | 2024-02-06 11:36 | DI.RAD_ITS ---
Exam(s) XR SHOULDER LT COMPLETE 2+V EXAM: XR SHOULDER LT COMPLETE 2+V CLINICAL HISTORY: PAIN LEFT SHOULDER M25.512 SINCE APRIL, EVAL FOR ROTATOR CUFF ARTHROPATHY. TECHNIQUE: 2D digital imaging was performed. Three views. COMPARISON: No exams were available for comparison FINDINGS: BONES: No acute fracture is present. No bony destructive lesion is seen. JOINTS: No dislocation present. Glenohumeral joint space is maintained. No significant degenerative changes. The AC joint shows no significant spurring. SOFT TISSUE: Normal. IMPRESSION: Unremarkable radiographs of the left shoulder. DATA REPOSITORY: RADIATION DOSE DELIVERED:
--- OUTSIDE RECORDS SUMMARY | 2024-02-06 15:33 | XMS_ITS | Referral Summary ---
Author Organization [facility] Address [address] [place] [address] Care Team Providers Care Community Mental Health Worker Name Role Phone Unknown, Provider Primary Care Provider Unava ilable Social History Tobacco Use Types Packs/Day Years Used Date Smoking Tobacco: Never Assessed Comments Unknown Sex and Gender Information Value Date Recorded Sex Assigned at Not on file Legal Sex Female 9:58 EDT Gender Identity Not on file Sexual Orientation Not on file Plan of Treatment Not on file Insurance [employer] Care Teams Community Mental Health Worker Relationship Specialty Start Date End Date Unknown, Provider, PCP - General 04/07/23
--- OUTSIDE RECORDS SUMMARY | 2024-02-06 15:33 | XMS_ITS | Encounter Summary ---
Author Organization [facility] Address [address] [place] [address] Care Team Providers Care Swedish Masseuse Name Role Phone Unknown, Provider Primary Care Provider Unava ilable Encounter Details Date Type Department Care Team (Late st Contact Info) Description 04/17/2023 Lab Requisition [facility] Pathology & Laboratory Medicine - [address] [address] Social History Tobacco Use Types Packs/Day Years [...] on filedocumented in this encounter Care Teams Swedish Masseuse Relationship Specialty Start Date End Date Unknown, Provider, PCP - General 04/07/23 documented as of this encounter
--- OUTSIDE RECORDS SUMMARY | 2024-02-06 15:33 | XMS_ITS | Encounter Summary ---
Author Organization [facility] Address [address] [place] [address] Care Team Providers Care Outside Industrial Sales Representative Name Role Phone Unknown, Provider Primary Care Provider Unava ilable Encounter Details Date Type Department Care Team (Late st Contact Info) Description 08/30/2021 Lab Requisition [facility] Pathology & Laboratory Medicine - [facility] [address] [place] [address] Kallie Sandoval MD [address] [place] [address] [address] [place] [address] Encounter for other general examination Social [...] Negative Negative 09/02/2021 15:16 EDT [facility] Comment:No E6 or E7 mRNA is detected from HPV types 16,18,31,33,35,39,45,51,52,56,58,59,66, and 68 by picking machine operator helper mediated amplification. Papanicolaou smear specimen (specimen) CERVIX UTERI STRUCTURE / Unknown 08/25/2021 15:40 EDT 09/01/2021 14:06 EDT us Kallie Sandoval MD MICROBIOLOGY - GENERAL ORDERAB LES Final Result [facility] [address] [place] [address] * PAP TEST (08/25/2021 15:40 EDT) Specimens A. Cervix and/or Endocervix , ThinPrep Imaging System with Manual Evaluation 09/02/2021 15:16 EDT [facility] Specimen Adequacy Satisfactory for Evaluation - transformation zone component present 09/02/2021 15:16 EDT [facility] General Categorization Negative for intraepithelial lesion or malignancy 09/02/2021 15:16 T [facility] Attestation . 09/02/2021 15:16 T [facility] at 1516 Clinical History See below 09/03/19 15:16 EDT [facility] HPV The result for the Human Papillomavirus (HPV) Detection-High Risk Types is Negative. No E6 or E7 mRNA is detected from HPV types 16,18,31,33,35,39 ,45,51,52,56,58,5 9,66, and 68 by picking machine operator helper mediated amplification.Olive ting was performed on specimen [id number] and was resulted on 09/02/2021 1510 EDT by FELIX, LAB INSTRUMENT RESULTS IN 09/02/2021 15:16 EDT [facility] Performing Lab [facility] 09/02/2021 15:16 EDT [facility] Scanned Images 09/02/2021 15:16 EDT [facility] Papanicolaou smear specimen (specimen) CERVIX UTERI STRUCTURE / Unknown 08/25/2021 15:40 EDT 08/30/2021 10:00 EDT us Kallie Sandoval MD PATHOLOGY ORDERABLES Final Res ult [facility] [address] [place] [address] documented in this encounter Visit Diagnoses Diagnosis Encounter for other general examination documented in this encounter Care Teams Outside Industrial Sales Representative Relationship Specialty Start Date End Date Unknown, Provider, PCP - General 04/07/23 documented as of this encounter
--- OUTSIDE RECORDS SUMMARY | 2024-02-06 15:33 | XMS_ITS | Encounter Summary ---
Author Organization [facility] Address [address] [place] [address] Care Team Providers Care Department Traffic Freight Router Name Role Phone Unknown, Provider Primary Care Provider Unava ilable Encounter Details Date Type Department Care Team (Late st Contact Info) Description 04/17/2023 Lab Requisition [facility] Pathology & Laboratory Medicine - [facility] [address] [place] [address] David Romeo MD [address] [place] [address], [address] [place] [address] Encounter for screening for malignant [...] management options, if applicable. 04/21/2023 11:48 EDT [facility] Final Diagnosis A. COLON, 25 CMS, POLYP, BIOPSY: - Mullerian-type glands in endometrial-type stroma; favor endometriosis. - Adjacent/overlying colonic mucosa with no significant diagnostic abnormalities. - No definite diagnostic evidence of malignancy. - Deeper sections x3 examined. - See comment. 04/21/2023 11:48 T [facility] Diagnosis Comment The histological and immunohistochemical features would favor endometriosis. The Mulllerian-type glands are not confluent and the epithelial lining cells do not show significant atypia to support a diagnosis of adenocarcinoma. Clinical follow-up and re-biopsy may be helpful if a malignancy is suspected clinically. Immunoperoxidase stains were performed on this case to further characterize the lesion. ANTIBODY(CLONE)(BLOCK ):RESULT PAX-8 (MRQ-50, Clemons) (A1): Positive in Mullerian-type glands SATB2 (EP281, [employer]) (A1): Negative in Mullerian-type glands CD10 (56C6, [...] performance characteristics have been determined by [facility] and/or by the referring laboratory. The [...] above diagnosis reflects her opinion. 04/21/2023 11:48 [facility] Attestation By the signature below, the attending physician certifies that they have 1) personally conducted a gross and/or microscopic examination of the described specimen(s), and/or personally interpreted the results of laboratory testing of the described specimen(s), and 2) personally rendered or confirmed the above diagnosis. 04/21/2023 11:48 [facility] at 1148 Clinical History Colorectal screening 04/21/2023 11:48 EDT [facility] Gross Description A. Received in formalin labelled with proper patient identification (initials S, V) and colon polyp 25 cm are 4 vu tissue fragments (0.2 x 0.1 x 0.1 cm to 0.5 x 0.3 x 0.1 cm). Entirely submitted in A1. Margareth Moser 04/18/2023 7:46 04/21/2023 11:48 EDT [facility] Performing Lab [facility] 04/21/2023 11:48 EDT [facility] Scanned Images 04/21/2023 11:48 EDT [facility] Tissue COLON STRUCTURE / Unknown 04/17/2023 9:04 EDT 04/17/2023 18:30 EDT us David Romeo MD PATHOLOGY ORDERABLES Final Resu lt [facility] [address] [place] [address] documented in this encounter Visit Diagnoses Diagnosis Encounter for screening for malignant neoplasm of colon Special screening for malignant neoplasms, colon documented in this encounter Care Teams Department Traffic Freight Router Relationship Specialty Start Date End Date Unknown, Provider, PCP - General 04/07/23 documented as of this encounter
--- OUTSIDE RECORDS SUMMARY | 2024-02-06 15:33 | XMS_ITS | Clinical Summary ---
Author Organization [facility] Address [address] [place] [address] Care Team Providers Care Pressing Machine Operator Name Role Phone Unknown, Provider [...] - 19+ 3-dose series) 07/06 COVID-19 Vaccine (2023- season) 2023 Insurance [employer] Care Teams Pressing Machine Operator Relationship Specialty Start Date End Date Unknown, Provider, PCP - General 04/07/23
== END 2024-02-06 15:39 ==
LOC: DI 15:20
PROVIDERS: PCP Nurse Practitioner Family; Visit Provider Family Medicine
DX: M25.512 Pain in left shoulder (principal)
CPT/HCPCS: 73030

== ENCOUNTER 2024-02-29 02:54 | Outpatient (CLI) | payer OTHER, SELFPAY ==
--- NOTE | 2024-02-29 | DI.MRI_ITS ---
Exam(s) MR UPPER JOINT LT WO EXAM: MR UPPER JOINT LT WO CLINICAL HISTORY: M62.81 Muscle weakness, s/p 8 weeks PT w/o improvement TECHNIQUE: Multiplanar multisequence MRI of the shoulder was performed. COMPARISON: CR XR SHOULDER LT COMPLETE 2+V from 02/06/2024 FINDINGS: MARROW:There is no evidence of fracture, Hill-Sachs deformity, nor ominous osseous lesions. GLENOHUMERAL JOINT: No significant joint effusion nor obvious loose intra-articular bodies. No promi nent chondral defects. No osteophytes. No degenerative subarticular cysts into the osseous glenoid. There are few small degenerative subarticular cysts in the lateral aspect humeral head.. ROTATOR CUFF MECHANISM: AC JOINT/ACROMIUM: There are mild degenerative changes in the AC joint. There are no enthesophytes e vident at the level the coracoacromial ligament.. There is no evidence of os acromiale. Supraspinatus: There is signal abnormality in the supraspinatus tendon consistent with tendinitis. O n 1 image there is suggestion of a partial thickness tear in the tendon substance. There is a tiny a mount of fluid in the subacromial/bursa space, probably element of bursitis at this there does not ap pear to be a full-thickness tear of the supraspinatus. There is also no muscle atrophy. Infraspinatus: Minimal tendinosis. No tear. No atrophy. Teres Minor: Intact. No evidence of tear nor muscle atrophy. Subscapularis/anterior cuff: Intact. No abnormal signal at the level of the multipennate insertional fibers. No significant tear nor atrophy. BICEPS TENDON: Exhibits normal position within the intertubercular groove. There is some mild increa sed signal within the intra-articular aspect of the tendon at its attachment to the anterosuperior la elena. This may be related to magic angle artifact LABRUM: No evidence of paralabral cyst. There is mild surface irregularity in the superior labrum pos terior to the biceps insertion site.. Also mild increased signal noted within the posterior labrum. Also slight mild irregularity of the anterosuperior labrum. Anterior inferior labrum appears unrema rkable. The inferior glenohumeral ligament appears intact. QUADRILATERAL SPACE: No evidence of mass in the region of the axillary nerve and dorsal circumflex hu meral vessels. Visualized triceps muscle at this level appears unremarkable. IMPRESSION: 1. There is signal abnormality in the supraspinatus tendon consistent with tendinitis/tendinosis and there is a subtle suggestion of some partial-thickness tearing of this tendon. There does not appear to be a full-thickness tear. There is no muscle atrophy. Minimal findings in the infraspinatus tendon . 2. There is some degenerative change in the AC joint which exhibits some impingement upon the suprasp inatus tendon/musculotendinous junction. 3. There is some mild labral fraying superiorly and anteriorly. However, there does not appear to be significant invagination of fluid signal between the labrum and osseous glenoid.. There is also no ev idence of paralabral cyst. DATA REPOSITORY:
--- NOTE | 2024-02-29 15:44 | DI.VRAD_ITS ---
PROCEDURE INFORMATION: Exam: MR Left Upper Extremity Joint Without Contrast; Shoulder Exam date and time: 02/29/2024 7:48 AM Age: 53 years old Clinical indication: Pain; Shoulder; Left TECHNIQUE: Imaging protocol: Magnetic resonance imaging of the left upper extremity without contrast. Exam focused on the shoulder. 380image(s) are provided. COMPARISON: CR XR SHOULDER LT COMPLETE 2+V 02/06/2024 11:29 AM report. No previous MRI of the shoulder is currently available. FINDINGS: Bones/joints: There is some motion artifact present. No diffuse acute abnormal marrow signal intensity is appreciated. There is some hypertrophic degeneration, signal of the acromioclavicular junction with maintained alignment. There appears to be some slight subacromial narrowing and spurring. There appear to be some subchondral cystic degenerative related changes present. There is a small amount of joint fluid present. There appears to be some trace subacromial, subdeltoid level fluid. Glenoid labrum: There is some labral degeneration present with edge fraying anteriorly predominant on these non arthrogram views. Some subtle fissuring could also present in this fashion. No acute adjacent marrow signal is currently appreciated. Supraspinatus tendon: Supraspinatus demonstrates some articular surface partial-thickness tearing. There appears to be some subtle increased signal suggestive of some distal focal full-thickness tearing. Infraspinatus tendon: Infraspinatus demonstrates some distal tendinopathy. There appears to be some subtle articular surface partial-thickness tearing. Subscapularis tendon: Subscapularis demonstrates some distal tendinopathy. Teres minor tendon: Teres minor appears grossly intact. Tendon of biceps brachii: Long head biceps course appears maintained of the bicipital groove with some mild tendinopathy appearance. Coracoclavicular ligament: The coracoclavicular ligamentous components appear grossly intact overall. Glenohumeral ligaments: There is slight thickening of the joint capsule, ligamentous components with the anterior superior predominance suggestive of sprain related sequela. Soft tissues: No subcutaneous fluid collections are appreciated. IMPRESSION: 1. There is some hypertrophic degeneration of the acromioclavicular junction with some subacromial narrowing and spurring. This contributes to indentation of the myotendinous junction of the supraspinatus predominantly. 2. There are some tendinopathy and articular surface partial-thickness tearing predominant changes of supraspinatus. Overall, no complete tearing with muscular retraction is appreciated. Dictated and Authenticated by: Edgard Blanchard MD. Ordering:GRAY Hernandez MD
== END 2024-02-29 03:14 ==
PROVIDERS: PCP Nurse Practitioner Family; Visit Provider Family Medicine
DX: M75.32 Calcific tendinitis of left shoulder (principal)
CPT/HCPCS: 73221

== ENCOUNTER 2024-03-21 10:06 | Day surgery (SDC) | payer OTHER, SELFPAY ==
[2024-03-21] VITALS (27 sets, daily range): BP systolic 129–188; BP diastolic 60–106; PULSE 56–109; RESP 5–24; TEMP 35.8–36.5; O2SAT 94–100; BMI 42.3
--- NOTE | 2024-03-21 11:01 | ANES.PREOP_ITS ---
General Info Date of Service Date Performed: 03/21/24 Height: 5 ft 3 in Weight: 108.5 kg Body Mass Index (BMI): 42.3 Surgical Procedure: Operation Date: 03/21/24 11:40 Proposed Procedure Side Surgeon p Shoulder Manipulation Left Depe Rodriguez MD Meds Allergies and Home Medications Allergies Allergy/AdvReac Type Severity Reaction Status Date / Time Latex, Natural Rubber Allergy Skin Rash Verified 03/21/24 10:28 Home Medication ?Medication ?Instructions ?Recorded ibuprofen 200 mg capsule (Advil 200 mg PO PRN 05/23/16 Liqui-Gel) losartan 50 mg tablet 50 mg PO BID 08/25/21 aspirin 81 mg tablet,delayed 81 mg PO DAILY 03/01/23 release magnesium oxide 200 mg PO DAILY 03/23/23 amlodipine 5 mg tablet 10 mg PO DAILY 01/18/24 Current Visit Medications: Current Medications Generic Name Dose Route Start Last Admin Trade Name Freq PRN Reason Stop Dose Admin IV Miscellaneous Supplies 1 each 03/21/24 06:00 Iv Access IV 03/21/24 23:59 DIRECTED SONDRA Sodium Chloride 0 ml 03/21/24 06:00 Normal Saline Flush 10 Ml Syr IV 03/21/24 23:59 PRN PRN Sodium Chloride 0 ml 03/21/24 06:00 Normal Saline 10 Ml Vial IJ 03/21/24 23:59 DIRECTED PRN Sterile Water 0 ml 03/21/24 06:00 Water,Injection,Sterile 10 Ml Vial IJ 03/21/24 23:59 DIRECTED PRN PFSH Active Problems Active Problems: Problem Status Onset Code Lateral epicondylitis of left elbow Acute M77.12 Adhesive capsulitis of left shoulder Acute M75.02 Left rotator cuff tear Acute M75.102 Encounter for screening colonoscopy Acute Z12.11 Nevus Acute D22.9 Sensorineural hearing loss Acute H90.5 Restless leg Acute G25.81 Hypertension Chronic I10 Condyloma acuminatum in female Chronic A63.0 Left lower quadrant pain Acute R10.32 Vaginal bleeding Acute N93.9 History of hysterectomy, supracervical Acute 05/23/16 Z90.711 Migraine with aura Acute 08/27/12 G43.109 Medical History Medical History urinary incontinence Hyperlipidemia Depression Surgical History Surgical History History of colonoscopy (~04/2023) Sling Procedure (~2008) Done at [facility] by Dr Bermudez - Bladder Sling type of procedure Diagnostic Laproscopy (~2000) Dr Scott - done for pelvic pain Cholecystectomy (~1998) Appendectomy (~1996) Tobacco Smoking/Tobacco Use Status: Former Tobacco Use Second hand exposure: Yes Alcohol Alcohol Intake: current Alcohol intake frequency: holidays/special occasions only Substance Use Substance use: Never Substance use type: does not use Prental History History 4 Para Hx # Term Pregnancies 2 Multiple births Hx # Pregnancies Ectopic pregnancies AB induced Hx Number of Living Children AB spontaneous Vital Signs and Lab Results Vital Signs Most Recent Vital Signs in EMR: Most Recent Vital Signs Temp Pulse Resp BP Pulse Ox 36.5 C 78 18 161/106 H 100 03/21/24 10:31 03/21/24 10:31 03/21/24 10:31 03/21/24 10:31 03/21/24 10:31 Lab Results Blood Type / Crossmatch: No Data to Display Complete Blood Count: No Data to Display Complete Metabolic Panel: No Data to Display Liver Function Panel: No Data to Display Coagulation Panel: No Data to Display Cardiac Panel: No Data to Display Arterial Blood Gas: No Data to Display Venous Blood Gas: No Data to Display Pancreas Panel: No Data to Display Thyroid Panel: No Data to Display Infectious Disease: No Data to Display Blood Cultures: No Data to Display Toxicology Panel: No Data to Display Panel: No Data to Display Anesthesia Assessment and Plan Anesthesia History Personal History: No History of Anesthesia Complications Family History: No Family History of Anesthesia Complications Exercise Tolerance Exercise Tolerance: Metabolic Equivalents>4 Pertinent Negatives Pertinent Negatives: No Symptoms of GERD, No Major Cardiovascular Symptoms or Complaints and No Major Pulmonary Symptoms or Complaints Cardiac & Pulmonary Exam Cardiac Exam: Normal S1/S2 Heart Sounds Pulmonary Exam: Clear Bilateral Breath Sounds Implantable Cardiac Device Does patient have a Pacemaker or an ICD?: No Airway Exam Known Difficult Airway: No Mallampati Class: 3 Mouth Opening: Normal (> 3cm) Thyromental Distance: Less than 3 cm Neck Range of Motion: Full ROM Neck Circumference: Thick Teeth Condition: Normal Dentition ASA Classification ASA Score: ASA 3 Emergency Case?: No NPO Status NPO Status: NPO Clears >2 hours, Solids >8 hours Status Status: History of Hysterectomy Anesthesia Plan Resuscitation Status: Full Code Anesthesia Technique: General Anesthesia Airway Planned: Natural Airway Pain Management: Surgeon and patient request nerve block Monitors Used: Standard Monitors
--- NOTE | 2024-03-21 11:01 | W.PM.OP ---
Operative Note Operative Note PRE-OP DIAGNOSIS: Left shoulder stiffness PROCEDURE: Left shoulder manipulation under anesthesia, CPT #45025 SURGEON: Deep Rodriguez ANESTHESIA TYPE: General LMA/ETT and Primary Nerve Block (Attempted, but unable to be done) Refer to Anesthesia Record ESTIMATED BLOOD LOSS: 0 COMPLICATIONS: None Patient was transported to: PACU Patient's condition: stable Indications: Please see complete medical record for details. Findings: Excellent release of adhesions, no instability Procedure Description: In the operating room, general anesthesia was induced. The patient was positioned supine on the stretcher. Preoperative antibiotics were omitted. The correct patient, procedure, and side of the procedure were all verified prior to beginning. The left shoulder was examined with range of motion about 90 degrees forward elevation and 15 degrees external rotation. Internal rotation at about 90 degrees was 30 degrees, abduction about 90 degrees. These endpoints had relatively firm, stiff feel. A short lever arm and gradual to steady gentle pressure was used to perform the manipulation with release quite readily achieved while gently going into forward elevation. Forward elevation was then full. Alternating between external rotation at the side and abduction with internal rotation and external rotation confirmed complete releases in these directions as well without the need for additional manipulation. Range of motion was then tested and full equal to the contralateral side. All endpoints were gently exaggerated. The shoulder joint remained stable. While the patient remained under anesthesia, all directions were stretched and repeated numerous times. The patient awoke from anesthesia without complication and was transferred to the recovery room in a stable condition. Date of Procedure: 03/21/24
[2024-03-21] MEDS: Lactated Ringers 1,000 ML 30 ML IV (11:09)
--- NOTE | 2024-03-21 11:21 | W.PM.DSUDISC ---
Date of service: 03/21/24 Discharge Plan Disposition Patient Disposition: Home Condition: Stable Discharge Details Attending Provider: Deep Rodriguez Primary Care Provider: Pattie Shi Home Meds and New Rx's Prescriptions: New naproxen 250 mg tablet 250 - 500 mg PO BID PRN (Reason: Moderate pain) Qty: 40 0RF oxycodone 5 mg tablet 5 - 10 mg PO Q4H PRN (Reason: Moderate to severe pain) Qty: 18 0RF Continued ibuprofen [Advil Liqui-Gel] 200 MG capsule 200 mg PO PRN aspirin 81 mg tablet,delayed release (DR/EC) 81 mg PO DAILY magnesium oxide 400 mg magnesium tablet 200 mg PO DAILY amlodipine 5 mg tablet 10 mg PO DAILY losartan 50 mg tablet 50 mg PO BID Discharge Instructions Additional Instructions: Surgery: Left shoulder manipulation under anesthesia Activity: Encourage increasing range of motion. Perform daily stretching exercises. Resume physical therapy tomorrow. Prescriptions: Naproxen 250 mg take 1-2 every 12 hours with a meal as needed for moderate pain Oxycodone 5 mg take 1-2 every 4-6 hours as needed for severe pain You may use [id number] Tylenol (acetaminophen) as needed for mild pain. These pain medications may be taken all at once or in different combinations as needed. Also, recommend Colace (docusate) as a stool softener as surgery and pain medicine cause constipation. You may try [id number] diphenhydramine (Benadryl) 25-50 mg nightly as a sleep aid Dressings: None Follow-up: 10-[address] Rodriguez You may take off the leg compression stockings this evening at home. You may also leave them on a few days longer if you have a history of leg swelling or edema. Let us know right away if you develop any redness, drainage, fevers, chest pain, or trouble breathing. Do not drink alcohol or drive for at least 24 hours after anesthesia. Please call the office during business hours with any questions or concerns. Discharge Orders Discharge Orders: Discharge Order (Routine); Ordered 03/21/24 Ordered By: Rashid Blum DS: Diagnosis Discharge Diagnosis (1) Adhesive capsulitis of left shoulder: Status: Acute
[2024-03-21] MEDS: HYDROmorphone 2 MG/ML SYR IVP ×3 (12:28→12:48)
--- NOTE | 2024-03-21 12:39 | W.ANESNERVE ---
Nerve Block Single Injection Procedure Date and Time Date Performed: 03/21/24 Procedure Start: 11:28 Location Where Procedure Performed Procedure Location: Day Surgery Unit Reason Performed: Postoperative Analgesia Requesting Provider: Deep Rodriguez Timeout Performed Timeout Performed: Yes Monitoring Used ECG, Blood Pressure and SpO2 Sterility Sterility: Hand Hygiene, Surgical Cap, Surgical Mask, Sterile Gloves, Sterile Drape/Sheet and Chlorhexidine Sedation Given During Procedure Sedation Given (Indicate Dose Given): Versed IV Dose:: 2 mg Patient Mental Status Patient Mental Status: Sedate with meaningful communication Nerve Block 1st Nerve Block: Laterality: Left Block Type: Interscalene Ultrasound Image Saved?: No Needle / Catheter Used: 100mm SonoPlex II Local Anesthetic Bolus (Indicate Dose Given): Lidocaine used for local infiltration of skin and Blood noted on aspiration (removed, line cleared and reinserted) Additives (Indicate Dose Given): None Ultrasound: Sterile probe cover and gel used Nerve Stimulator: Supplement to Ultrasound use and No twitch or parasthesia noted < 0.5 mA Paresthesia: Left (needle redirection, resolved before continued attempt) Paresthesia Duration: Transient Procedure Tolerated: No Complications Procedure Outcome: Unsuccessful Procedure Comment: Poor visualization due to body habitus and abberant anatomy. Called Baron Bergman CRNA in for a second opinion. parasthesia encountered on needle path to nerve bundle, needle redirected without improvement so needle wihdrawn. Parasthesia totally gone prior to another attempt. Used a different model of US to see if a better view could be obtained. Also had myself and Michelle taking a look with both ultrasounds. Mediocre view with difficult visualization of the needle and positive heme on aspiration, needle withdrawn and cleared. Unable to obtain an acceptable and safe view again Performed By: Danitza Mccullough
--- NOTE | 2024-03-21 14:11 | W.ANESPOSTOP ---
Postoperative Evaluation Date, Time and Location Date Performed: 03/21/24 Time Performed: 14:03 Patient Location: Day Surgery Unit Vital Signs Most Recent Imported Vital Signs: Most Recent Vital Signs Temp Pulse Resp BP Pulse Ox 35.8 C L 83 17 137/66 100 03/21/24 13:31 03/21/24 13:31 03/21/24 13:31 03/21/24 13:31 03/21/24 13:31 Pain Score Most Recent Pain Score: Most Recent Pain Score Pain Level 3 03/21/24 13:31 Assessment Mental Status: Awake (Alert & Oriented to Patient Baseline) Airway and Respiratory Function: Patent airway with normal (patient baseline) respiratory exam Cardiovascular Function: Hemodynamically Stable Hydration Status: Adequately Hydrated Nausea & Vomiting: No Nausea or Vomiting Pain: Pain is tolerable per patient Peripheral Nerve Block: Patient did not receive a nerve block Postoperative Comments:: Discussed with patient and about not being able to do the block preop since there was not a safe path to the nerve bundle due to poor visualization. Patient verbalized understanding and appreciated us not taking any risks. Talked about proper use of pain meds.
== END 2024-03-21 14:40 | disposition home or self-care (01) ==
PROVIDERS: PCP Nurse Practitioner Family; Visit Provider Student in an Organized Health Care Education/Training Program
PROC: (CPT 23700; principal; 2024-03-21 11:30)
DX: M75.02 Adhesive capsulitis of left shoulder (principal)
CPT/HCPCS: 23700; 64415; J0131; J0665; J0666; J1100; J1171; J1885; J2250; J2405; J2704; J3010

== ENCOUNTER 2024-04-18 18:31 | Outpatient (REF) | payer OTHER, SELFPAY ==
[2024-04-18 19:37] LABS: Abs Immature Grans 0.03 10^3/uL (0.0-0.06); Absolute Basophil Count 0.06 10^3/uL (0.0-0.2); Absolute Eosinophil Count 0.23 10^3/uL (0.0-0.7); Absolute Lymphocyte Count 2.13 10^3/uL (1.2-3.4); Absolute Monocyte Count 0.76 10^3/uL (0.1-0.8); Basophils % 0.7 %; Eosinophils % 2.6 %; HCT 42.6 % (36.0-46.0); HGB 13.3 g/dL (11.2-15.7); Immature Grans % 0.3 %; Lymphocytes % 24.5 %; MCHC 31.2 % (32.0-36.0); MCV 93 fL (80-95); MPV 10.1 fL (8.0-11.0); Monocytes % 8.7 %; Neutrophils % 63.2 %; Platelet Count 355 10^3/uL (130-400); RBC 4.58 10^6/uL (3.93-5.22); RDW 12.8 % (11.7-14.6); RDW-SD 43.6 fL; WBC 8.71 10^3/uL (4.4-10.8)
[2024-04-18 20:05] LABS: Hemoglobin A1C 5.8 % (<5.7)
[2024-04-18 20:11] LABS: TSH 0.42 uIU/mL (0.36-3.74)
== END 2024-04-18 18:32 | disposition home or self-care (01) ==
LOC: NCHCN 18:31
PROVIDERS: PCP Nurse Practitioner Family; Visit Provider Family Medicine
DX: R73.03 Prediabetes (principal); N95.1 Menopausal and female climacteric states
CPT/HCPCS: 83036; 84443; 85025

== ENCOUNTER 2024-11-25 13:41 | Outpatient (REF) | payer OTHER, SELFPAY ==
[2024-11-27 15:09] LABS: Campylobacter PCR Negative (Negative); Shiga Toxin PCR Negative (Negative); Shigella/Enteroinvasive Ecoli Negative (Negative)
== END 2024-11-25 13:42 | disposition home or self-care (01) ==
LOC: LBN 13:41
PROVIDERS: PCP Nurse Practitioner Family; Visit Provider Nurse Practitioner Family
DX: R19.7 Diarrhea, unspecified (principal)
CPT/HCPCS: 87015; 87177; 87209; 87269; 87272; 87505